=== PATIENT | male | born 1985 | race Caucasian/White ===

== ENCOUNTER 2016-11-05 21:34 | Emergency (ER) | payer OTHER ==
[~2016-11-05] VITALS: Ht 175.3 cm; Wt 72.6 kg
[2016-11-05 21:38] VITALS: BP 124/64
--- NOTE | 2016-11-05 21:55 | NUR ---
TO ER BED 3
--- NOTE | 2016-11-05 21:55 | NUR ---
Vivek middleton in [facility] - 11/05/16 at 2158 by [facility] TO ER BED 4
--- NOTE | 2016-11-05 22:02 | NUR ---
30 Y/O M W/C/O CHEST PAIN,PALPITATIONS, SOB AND HEADACHES X TODAY, AND A BUMP TO R HIP. MED HX HEART MURMUR. PT STATES CP IS NON RADIATING, SHARP, INTERMITTENT FOR 2 SECS. PT DENIES ANY N/V/D AT THE MOMENT PT AAOX4
--- NOTE | 2016-11-05 22:15 | NUR ---
Patient being evaluated by physician DR MARTINEZ at bedside.
[2016-11-05] MEDS ORDERED: LORazepam 2 MG/ML VIAL IVP ONE (22:20)
[2016-11-05] MEDS ORDERED: KETOROLAC 30 MG/ML VIAL IVP ONE (22:20)
[2016-11-05] MEDS ORDERED: NACL 0.9% 1,000 ML IV ONE (22:20)
[2016-11-05 22:55] LABS: ANION GAP 11.6 (8-16); BASOPHILS # (AUTO) 0.3 K/uL (0.00-0.22); BASOPHILS % (AUTO) 3.6 % (0.0-2.0); CALCIUM 9.1 mg/dL (8.5-10.1); CARBON DIOXIDE 30.3 mmol/L (21-32); EOSINOPHILS # (AUTO) 0.3 K/uL (0-0.4); EOSINOPHILS % (AUTO) 2.7 % (0.0-4.0); HEMATOCRIT 43.9 % (36-52); HEMOGLOBIN 14.9 g/dL (12.0-18.0); LYMPHOCYTES # (AUTO) 1.9 K/uL (2.0-11.5); LYMPHOCYTES % (AUTO) 20.3 % (20.5-51.1); MEAN CORPUSCULAR HEMOGLOBIN 29 pg (27-31); MEAN CORPUSCULAR HGB CONC 34 g/dL (33-37); MEAN CORPUSCULAR VOLUME 87 fL (80-94); MONOCYTES # (AUTO) 0.5 K/uL (0.8-1.0); MONOCYTES % (AUTO) 5.2 % (1.7-9.3); NEUTROPHILS # (AUTO) 6.3 K/uL (1.8-7.7); NEUTROPHILS % (AUTO) 68.2 % (42.2-75.2); PLATELET COUNT (AUTO) 148 K/uL (140-450); POTASSIUM 3.9 mmol/L (3.5-5.1); RED BLOOD CELL COUNT(AUTO) 5.08 MIL/uL (4.20-6.10); WHITE BLOOD COUNT (AUTO) 9.3 K/uL (4.8-10.8)
[2016-11-05 23:01] LABS: TOTAL BILIRUBIN 0.3 mg/dL (0.0-1.0); TOTAL PROTEIN, SERUM 6.8 g/dL (6.4-8.2)
[2016-11-05 23:05] LABS: INR 1.1 (0.8-1.2); PROTHROMBIN TIME 11.6 secs (10.8-13.4)
--- NOTE | 2016-11-05 23:29 | NUR ---
IV removed, catheter intact and site benign. Applied folded 4x4 gauze and tape to stop bleeding.
[2016-11-05 23:30] VITALS: BP 112/72
--- NOTE | 2016-11-05 23:30 | NUR ---
Patient discharged with v/s stable. Written and verbal after care instructions given and explained. Patient alert, oriented and verbalized understanding of instructions. Ambulatory with steady gait. All questions addressed prior to discharge. ID band removed. Patient advised to follow up with PMD. Rx of MOTRIN 800MG AND XANAX 0.5MG given. Patient educated on indication of medication including possible reaction and side effects. Opportunity to ask questions provided and answered.
== END 2016-11-05 23:30 | disposition home or self-care (01) ==
LOC: MED 21:34
DX: R07.9 Chest pain, unspecified (principal); F41.9 Anxiety disorder, unspecified; R03.0 Elevated blood-pressure reading, without diagnosis of hypertension; F17.210 Nicotine dependence, cigarettes, uncomplicated
CPT/HCPCS: 36415; 71010; 80053; 84484; 85025; 85610; 85730; 93005; 96361; 96374; 96375; 99285; J1885; J2060; J7030

== ENCOUNTER 2018-05-26 01:10 | Emergency (ER) | payer OTHER ==
[~2018-05-26] VITALS: Ht 170.2 cm; Wt 84.8 kg
[2018-05-26 01:15] VITALS: BP 128/73
--- NOTE | 2018-05-26 02:01 | NUR ---
PT MOVED TO BED 9
--- NOTE | 2018-05-26 02:10 | NUR ---
PT BIB SELF C/O ABCESS IN PUBES AREA. PT STATES ABCESS STARTED SMALL 1 MONTH AGO AND HAS STARTED DRAINING YELLOW, BLOODY DISCHARGE. PT STATES 8/10 PAIN. PT STATES [place] [facility] [place]IV[place], BUT "WANTS THE DOCTOR TO LOOK AT IT". PT STATES ITCHING TO GLANS, FREQUENT URINATION PATTERN. --DENIES N/V/D; SKIN IS PINK/WARM/DRY; AAOX4 WITH EVEN AND STEADY GAIT; LUNGS CLEAR BL; HR EVEN AND REGULAR; PT DENIES ANY FEVER, CP, SOB, OR COUGH AT THIS TIME; VSS; PATIENT POSITIONED FOR COMFORT; HOB ELEVATED; BEDRAILS UP X2; BED DOWN. ER MD MADE AWARE OF PT STATUS. PMH: DENIES RX: KEFLEX
--- NOTE | 2018-05-26 02:55 | NUR ---
Dr. Stubbs evaluating patient at bedside.
[2018-05-26 03:49] VITALS: BP 123/71
== END 2018-05-26 03:09 | disposition home or self-care (01) ==
LOC: MED 01:10
DX: L02.211 Cutaneous abscess of abdominal wall (principal); F17.200 Nicotine dependence, unspecified, uncomplicated
CPT/HCPCS: 99282